=== PATIENT | male | born 1955 | race Caucasian/White ===

== ENCOUNTER 2016-08-27 15:14 | Emergency (ER) | payer OTHER ==
[~2016-08-27] VITALS: Ht 190.5 cm; Wt 108.9 kg
--- NOTE | 2016-08-27 16:26 | RADIOLOGY REPORT ---
EXAMINATION: XR HAND, LEFT CLINICAL INFORMATION: Left hand trauma. Evaluate for fracture. COMPARISON: None. TECHNIQUE: AP, lateral, and oblique views of the left hand. FINDINGS: Multiple views of the left hand demonstrate moderate soft tissue swelling surrounding the left index finger. Of note, there is an acute nondisplaced fracture traversing the distal tuft of the distal phalanx of the left index finger. No radiopaque foreign bodies are identified. No additional fractures of the left hand are noted. However, there is limited evaluation of the proximal phalanx of the left fourth digit secondary to an overlying ring which could not be removed for the purposes of the examination. There are mild to moderate degenerative changes at the base of the left thumb. IMPRESSION: Acute transverse fracture traversing the distal tuft of the distal phalanx of the left index finger. No intra-articular extension. No additional fractures are identified. Moderate soft tissue swelling surrounding the tip of the left index finger. No radiopaque foreign bodies.
--- NOTE | 2016-08-27 17:08 | ED HAND/WRIST INJURY COMPLAINT ---
History of Present Illness General Chief Complaint: Laceration Procedure Stated Complaint: LFT FINGER LAC Source: patient Exam Limitations: no limitations Vital Signs & Intake/Output Vital Signs & Intake/Output Vital Signs Date Time Temp Pulse Resp B/P B/P Pulse O2 O2 Flow FiO2 Mean Ox Delivery Rate 08/27 1737 98 08/27 1723 97.2 80 18 146/92 95 Room Air 08/27 1518 95.7 77 15 169/88 98 Room Air Room Air Allergies Coded Allergies: No Known Allergies (08/27/16) Reconcile Medications Amoxicillin/Potassium Clav (Augmentin 875-125 Tablet) 875 MG-125 MG TABLET 1 TAB PO BID OPEN TUFT FX Oxycodone HCl/Acetaminophen (Percocet 5-325 MG Tablet) 5 MG-325 MG TABLET 1-2 TAB PO Q6P PRN PAIN Triage Note: PT TO ED FOR LAC TO LEFT POINTER FINGER AFTER USING TABLE SAW. PART OF PT'S FINGER NAIL MISSING. CONTINUOUSLY BLEEDING. TAKES TWO BABY ASPIRINS DAILY. TETANUS WITHIN TEN YEARS. Triage Nurses Notes Reviewed? yes Occurred: this afternoon Duration: hour(s): Timing: single episode today Injury Environment: home Severity: severe Pain/Injury Location: Left: 1st finger. Context: laceration Method of Injury: laceration No Modifying Factors: none HPI: 60-year-old male presents to emergency department complaining of laceration to left first digit. Patient states that while using a mechanical saw today he accidentally cut his left first finger and nail. Patient was unable to control bleeding at home and came to emergency department following accident. Patient has gotten a tetanus shot within the last 10 years. Patient denies numbness or tingling. Past History Travel History Traveled to [place] past 21 day No Medical History Any Pertinent Medical History? 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 No Review of Systems Review of Systems Constitutional: Reports: no symptoms. EENTM: Reports: no symptoms. Respiratory: Reports: no symptoms. Cardiovascular: Reports: no symptoms. GI: Reports: no symptoms. Genitourinary: Reports: no symptoms. Musculoskeletal: Reports: see HPI. Skin: Reports: no symptoms. Neurological/Psychological: Reports: no symptoms. Hematologic/Endocrine: Reports: no symptoms. Immunologic/Allergic: Reports: no symptoms. All Other Systems: Reviewed and Negative Physical Exam Physical Exam General Appearance: well developed/nourished, no apparent distress, alert, awake Head: atraumatic, normal appearance Eyes: Bilateral: normal appearance. Ears, Nose, Throat: normal ENT inspection Neck: normal inspection, supple, full range of motion Cardiovascular/Respiratory: normal breath sounds, no respiratory distress Back: normal range of motion Hand Left: lacerations, 1st finger (DORSOLATERAL INVOLVING NAIL) Hand Right: normal inspection Neurologic/Tendon: normal sensation, normal motor functions, normal tendon functions, responds to pain, no evidence tendon injury, no pulse deficit Skin: intact, normal color Progress Differential Diagnosis: abscess, cellulitis, contusion, compartment syndrome, dislocation, fracture, sprain, LACERATION Plan of Care: Current Medications Sig/Perry Start time Last Medication Dose Stop Time Status Admin Amoxicillin/ 1,000 MG ONCE ONE 08/27 1899 UNVr 08/27 Clavulanate Potassium 08/27 (Augmentin) 08/27/2016 5:45:08 PM Radiology results discussed with patient. Patient agrees with plan of care at this time. (TIANA FOLEY) Diagnostic Imaging: Viewed by Me: Radiology Read. Discussed w/RAD: Radiology Read. Radiology Impression: PATIENT: KANDICE HADLEY PRESENT AGE: 60 PATIENT ACCOUNT NO: [id number] : 53 LOCATION: [facility] ORDERING PHYSICIAN: RAMON DELANEY DO (TBS) SERVICE DATE: 08/27/16 EXAM TYPE: RAD - XRY-HAND, LEFT EXAMINATION: XR HAND, LEFT CLINICAL INFORMATION: Left hand trauma. Evaluate for fracture. COMPARISON: None. TECHNIQUE: AP, lateral, and oblique views of the left hand. FINDINGS: Multiple views of the left hand demonstrate moderate soft tissue swelling surrounding the left index finger. Of note, there is an acute nondisplaced fracture traversing the distal tuft of the distal phalanx of the left index finger. No radiopaque foreign bodies are identified. No additional fractures of the left hand are noted. However, there is limited evaluation of the proximal phalanx of the left fourth digit secondary to an overlying ring which could not be removed for the purposes of the examination. There are mild to moderate degenerative changes at the base of the left thumb. IMPRESSION: Acute transverse fracture traversing the distal tuft of the distal phalanx of the left index finger. No intra-articular extension. No additional fractures are identified. Moderate soft tissue swelling surrounding the tip of the left index finger. No radiopaque foreign bodies. 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 <Electronically signed in Other Vendor System> SIGNED BY: YAHIR ZHOU MD 08/27/16 1626 Departure Departure Disposition: HOME OR SELF CARE Condition: Stable Clinical Impression Primary Impression: Open fracture of tuft of distal phalanx of finger Referrals: EBONY GUY,MARCELINO BROUSSARD MD,ILYA (PCP/Family) Additional Instructions: Take Percocet and Augmentin as prescribed. Follow-up with plastic surgeon provided. Return if any concerns worsening symptoms. Please go over all results of today's visit with your primary care doctor. Contact your primary care doctor to let them know you were here in the emergency room. There may be nonspecific findings which may not be related to your visit today here in the emergency room but may require further evaluation and chronic monitoring by your primary care doctor. If you had a laceration today the chance of foreign body always remains. You should follow-up with your primary care doctor for recheck in 3-5 days for a wound check. If you had an x-ray done there is a chance that a fracture could have been missed on initial read and you should follow-up with your primary care doctor for repeat x-rays if symptoms persist. If your blood pressure was elevated here in the emergency room please have rechecked by her primary care doctor within the next 48 hours by your primary care doctor. If you were prescribed a narcotic here in the emergency room or any type of controlled substances you're not allowed to drive while taking this medication or operate any type of heavy machinery. Narcotics can make you feel lightheaded dizziness nausea and can cause constipation. You may need to parts picker a stool softener. Thank you for choosing [facility] emergency room. Please return to the emergency room immediately if you have any other concerns worsening of symptoms. Departure Forms: Customer Survey General Discharge Information Prescriptions: Current Visit Scripts Amoxicillin/Potassium Clav (Augmentin 875-125 Tablet) 1 TAB PO BID #20 TAB Oxycodone HCl/Acetaminophen (Percocet 5-325 MG Tablet) 1-2 TAB PO Q6P PRN PAIN #20 TAB Procedures Laceration/Wound Repair Progress: Complex laceration to left distal second phalanx, laceration through nail bed, multiple pieces of nail, tenderness to palpation, digital block performed with 1 % lidocaine, 6 mL injected, partial removal of nail, Betadine prep, irrigated with copious amounts of saline Betadine and peroxide, 4.0 chromic gut use, multiple stitches placed, Surgicel used topically, sterile dressing placed, finger splint placed, patient tolerated procedure well,
[2016-08-27 17:23] VITALS: BP 146/92
[2016-08-27] MEDS ORDERED: AUGMENTIN 875-1 EACH PO (18:51)
[2016-08-27] MEDS ORDERED: PERCOCET 5-3251 EACH PO (18:51)
== END 2016-08-27 19:00 ==
LOC: ERH 15:14
DX: S62.631B Displaced fracture of distal phalanx of left index finger, initial encounter for open fracture (principal); W27.0XXA Contact with workbench tool, initial encounter; Y93.9 Activity, unspecified; Y92.009 Unspecified place in unspecified non-institutional (private) residence as the place of occurrence of the external cause
CPT/HCPCS: 73130-LT; J3490